=== PATIENT | male | born 1980 | race Caucasian/White ===

== ENCOUNTER 2016-10-06 16:14 | Emergency (ER) | payer OTHER ==
[2016-10-06 16:27] VITALS: BP 149/79
--- NOTE | 2016-10-06 16:43 | UC ---
Skin Complaint HPI - HPI Summary HPI Summary: patient developed a red blistery rash after being outside 3 days ago. it is itchy and he has been itching it. clear fluid oozing, large area of redness. - History of Current Complaint Chief Complaint: UCSkin Time Seen by Provider: 10/06/16 16:37 Stated Complaint: LEFT LEG RASH Hx Obtained From: Patient Onset/Duration: Sudden Onset, Lasting Days Skin Exposure Onset/Duration: Days Ago Timing: Constant Onset Severity: Moderate Current Severity: Moderate Character: Pruritus, Pain, Redness, Raised Aggravating: Nothing Alleviating: Nothing Related History: Possible Reaction to: Environmental Exposure - Allergy/Home Medications Allergies/Adverse Reactions: Allergies Allergy/AdvReac Type Severity Reaction Status Date / Time No Known Allergies Allergy Verified 10/06/16 16:22 Home Medications: Home Medications Ibuprofen TAB* [Advil TAB*] 400 mg PO Q6H PRN 10/06/16 [History Confirmed ] Review of Systems Constitutional: Negative Skin: Rash Eyes: Negative ENT: Negative Respiratory: Negative Cardiovascular: Negative Gastrointestinal: Negative Genitourinary: Negative Motor: Negative Neurovascular: Negative Musculoskeletal: Negative Neurological: Negative Psychological: Negative All Other Systems Reviewed And Are Negative: Yes PMH/Surg Hx/FS Hx/Imm Hx Previously Healthy: Yes - Surgical History Surgical History: Yes Surgery Procedure, Year, and Place: skin graft on foot - Family History Known Family History: Negative: Cardiac Disease, Hypertension - Social History Alcohol Use: Rare Substance Use Type: None Smoking Status (MU): Former Smoker Type: Cigarettes Amount Used/How Often: 5 cigs per day - Immunization History Most Recent Tetanus Shot: 12/2012 Physical Exam Triage Information Reviewed: Yes Appearance: Well-Appearing, Well-Nourished, Pain Distress Vital Signs: Initial Vital Signs Temp 98.5 F 10/06/16 16:23 Pulse 78 10/06/16 16:23 Resp 16 10/06/16 16:23 BP 149/79 10/06/16 16:23 Pulse Ox 96 10/06/16 16:23 Vital Signs Reviewed: Yes Eye Exam: Normal ENT Exam: Normal Dental Exam: Normal Neck exam: Normal Respiratory Exam: Normal Cardiovascular Exam: Normal Abdominal Exam: Normal Bowel Sounds: Positive: Present Musculoskeletal Exam: Normal Neurological Exam: Normal Psychological Exam: Normal Skin: Positive: rashes - blisters with an erythemic base, pruitic, large red area surround the blisters Course/Dx - Course Course Of Treatment: hx obtained, exam performed ,meds reviewed, treated for cellulitis and poision renae - Differential Diagnoses - Skin Complaint Differential Diagnoses: Cellulitis, Contact Dermatitis, Impetigo, MRSA, Poison Renae, Poison [place] - Diagnoses Provider Diagnoses: poison renae and cellulitis on the left lower leg Discharge - Discharge Plan Condition: Stable Disposition: HOME Prescriptions: Cephalexin CAP* [Keflex CAP*] 500 mg PO BID #14 cap predniSONE TAB* [Deltasone TAB*] 20 mg PO DAILY #18 tab Patient Education Materials: Poison Renae (ED), Cellulitis (ED) Referrals: KATEY Suggs [Medical Doctor] - Additional Instructions: 1. take the medication as prescribed. 2. Cool compresses if itchy 3. keep the blisters covered.
== END 2016-10-06 16:48 | disposition home or self-care (01) ==
LOC: UCCORT 16:14
DX: L23.7 Allergic contact dermatitis due to plants, except food (principal); L03.116 Cellulitis of left lower limb; Z87.891 Personal history of nicotine dependence
CPT/HCPCS: 99212; G0463

== ENCOUNTER 2017-05-08 11:26 | Emergency (ER) | payer OTHER ==
[2017-05-08 11:40] VITALS: BP 130/72
--- NOTE | 2017-05-08 12:20 | UC ---
Headache HPI - HPI Summary HPI Summary: pt c/o sudden onset of headache, double vision that began this morning at work. Pt denies injury or unilateral weakness, diffiuclty speaking or inability to swallow. - History Of Current Complaint Chief Complaint: UCHeadache Stated Complaint: BLURRY VISION,DURANT Time Seen by Provider: 05/08/17 12:05 Hx Obtained From: Patient Onset/Duration: Sudden Onset, Other - Headache is still present, vision c/o resolved since onset Initially Headache Was: Mild Currently Pain Is: Mild Pain Intensity: 5 Timing: Constant Character: Dull Location of Headache: Other: - a badn around head Aggravating Factor(s): Nothing Allevating Factor(s): Other (Noted In Comments) - pt states durant has improved and will take otc nsaid at home has history of migraines. - Risk Factors SAH Risk Factors: Negative Meningitis Risk Factors: Negative SDH Risk Factors: Male Temporal Arteritis Risk Factors: Negative - Allergies/Home Medications Allergies/Adverse Reactions: Allergies Allergy/AdvReac Type Severity Reaction Status Date / Time No Known Allergies Allergy Verified 05/08/17 11:40 PMH/Surg Hx/FS Hx/Imm Hx Previously Healthy: Yes - obese - Surgical History Surgical History: Yes Surgery Procedure, Year, and Place: skin graft on foot - Family History Known Family History: Negative: Cardiac Disease, Hypertension - Social History Occupation: Employed Full-time Lives: With Family Alcohol Use: Rare Substance Use Type: None Smoking Status (MU): Former Smoker Type: Cigarettes Amount Used/How Often: 5 cigs per day Have You Smoked in the Last Year: Yes - Immunization History Most Recent Tetanus Shot: 12/2012 Review of Systems Constitutional: Negative Skin: Negative Eyes: Blurred Vision - resolved ENT: Negative Respiratory: Negative Cardiovascular: Negative Gastrointestinal: Negative Genitourinary: Negative Motor: Negative Neurovascular: Negative Musculoskeletal: Negative Neurological: Headache Psychological: Negative Is Patient Immunocompromised?: No All Other Systems Reviewed And Are Negative: Yes Physical Exam Triage Information Reviewed: Yes Appearance: Well-Appearing, Obese Vital Signs: Initial Vital Signs Temp 98.5 F 05/08/17 11:36 Pulse 62 05/08/17 11:36 Resp 18 05/08/17 11:36 BP 130/72 05/08/17 11:36 Pulse Ox 97 05/08/17 11:36 Vital Signs Reviewed: Yes Eye Exam: Normal ENT Exam: Normal Dental Exam: Normal Neck exam: Normal Respiratory Exam: Normal Cardiovascular Exam: Normal Musculoskeletal Exam: Normal Neurological Exam: Normal Psychological Exam: Normal Skin Exam: Normal Headache Course/Dx - Course Course Of Treatment: Pt states that his c/o blurred vision resolved prior to arrival to clinic. Pt states his baseline BP is 130 systolic. - Differential Dx/Diagnosis Differential Diagnosis/HQI/PQRI: CVA, TIA, Migraine, Tension Headache Provider Diagnoses: Tension DURANT Discharge - Discharge Plan Condition: Stable Disposition: HOME Patient Education Materials: Tension Headache (ED) Referrals: Daniel Stoner [Primary Care Provider] - As Soon As Possible Additional Instructions: Please follow up with your PCP as soon as possible. If symptoms worsen please seek care at the closest Emergency Department immediately.
== END 2017-05-08 12:32 | disposition home or self-care (01) ==
LOC: UCCORT 11:26
DX: G44.209 Tension-type headache, unspecified, not intractable (principal); Z87.891 Personal history of nicotine dependence
CPT/HCPCS: 99211; G0463